=== PATIENT | female | born 1990 | race African-American/Black ===

== ENCOUNTER 2016-12-08 04:05 | Emergency (ER) | payer OTHER ==
[2016-12-08 04:31] VITALS: BP 147/99; PULSE 92; TEMP 98.6; BMI 34.4
[2016-12-08] MEDS ORDERED: KETOROLAC TROMETHAMINE 30 MG/1 ML VIAL IVPUSH ONE (04:35)
[2016-12-08] MEDS ORDERED: CLINDAMYCIN 600MG PREMIX IVPB 50 ML IVPB ONE (04:35)
--- NOTE | 2016-12-08 04:41 | PDOC ---
History of Present Illness - General Chief Complaint: Toothache Stated Complaint: SWELLING TO FACE Time Seen by Provider: 12/08/16 04:31 History Source: Patient Exam Limitations: No Limitations - History of Present Illness Initial Comments: 12/08/16 04:36 26yo Female patient with no significant past medical history presents to ED c/o toothache/infection. Patient states Friday afternoon tooth cracked. She called her Dentist who does not have an opening until Friday. Patient states she woke up with left facial swelling. Denies trouble breathing or difficulty managing secretions. LNMP: November 14. Severity: moderate Modifying Factors: worse with: cold therapy, eating, immobilization, medication , movement, rest, other Associated Symptoms: denies: denies symptoms, chest pain, cough, diaphoresis, fever/chills, headaches, loss of appetite, malaise, nausea/vomiting, rash, seizure, shortness of breath, syncope, weakness, other Aspirin Received prior to arrival: No: no aspirin today, unknown, 81 mg x 1, 81 mg x 2, 81 mg x 3, 81 mg x 4, 325 mg x 1, provided at home, provided by EMS, provided by [facility] Contraindications(Core Measure): No: Allergy, Other, Active Blding w/i 24 hrs., Plavix, Receiving Warfarin Past History - Travel Traveled outside of the country in the last 30 days: No Close contact w/someone who was outside of country & ill: No - Past Medical History Allergies/Adverse Reactions: Allergies Allergy/AdvReac Type Severity Reaction Status Date / Time No Known Allergies Allergy Verified 12/08/16 04:28 Home Medications: Ambulatory Orders Clindamycin [Cleocin -] 300 mg PO TID #30 capsule 12/08/16 Ibuprofen 800 mg PO Q8H PRN #20 tablet 12/08/16 Psychiatric Problems: Yes (panic attacks) - Psycho/Social/Smoking Cessation Hx Anxiety: No Suicidal Ideation: No Smoking History: Never smoked Have you smoked in the past 12 months: No Information on smoking cessation initiated: No Hx Alcohol Use: No Drug/Substance Use Hx: No Substance Use Type: None Review of Systems - Review of Systems Able to Perform ROS?: Yes Is the patient limited [place]ian proficient: No Constitutional: No: Chills, Fever HEENTM: Yes: Mouth Pain, Dental Problems, Mouth Swelling. No: Difficulty Swallowing Respiratory: No: Shortness of Breath, Stridor All Other Systems: Reviewed and Negative *Physical Exam - Vital Signs Last Vital Signs Temp Pulse Resp BP Pulse Ox 98.6 F 92 H 16 147/99 98 12/08/16 04:29 12/08/16 04:29 12/08/16 04:29 12/08/16 04:29 12/08/16 04:29 - Physical Exam General Appearance: Yes: Nourished, Appropriately Dressed. No: Apparent Distress, Mild Distress, Moderate Distress, Severe Distress HEENT: positive: EOMI, SARTHAK, Normal ENT Inspection, Normal Voice, Symmetrical, TMs Normal, Pharynx Normal, Other (Left facial swelling w/o abscess formation.) . negative: Pharyngeal Erythema, Tonsillar Exudate, Tonsillar Erythema, TM Bulging, TM Dull, TM Erythema Neck: positive: Trachea midline, Normal Thyroid, Supple. negative: Lymphadenopathy (R), Lymphadenopathy (L) Respiratory/Chest: positive: Lungs Clear, Normal Breath Sounds. negative: Chest Tender, Respiratory Distress, Accessory Muscle Use, Labored Respiration, Rapid RR Cardiovascular: positive: Regular Rhythm, Regular Rate Gastrointestinal/Abdominal: positive: Normal Bowel Sounds, Soft. negative: Distended, Guarding, Rebound, Tenderness Musculoskeletal: positive: Normal Inspection. negative: CVA Tenderness Extremity: positive: Normal Capillary Refill, Normal Inspection, Normal Range of Motion. negative: Pedal Edema, Swelling, Calf Tenderness, Erythema, Inflammation Integumentary: positive: Normal Color, Dry, Warm Neurologic: positive: leather skinner II-XII NML intact, Fully Oriented, Alert, Normal Mood/ Affect, Normal Response, Motor Strength 09/27 ED Treatment Course - LABORATORY CBC & Chemistry Diagram: 12/08/16 04:50 12/08/16 04:50 *DC/Admit/Observation/Transfer Diagnosis at time of Disposition: Dental caries - Discharge Dispostion Disposition: HOME Condition at time of disposition: Stable Admit: No - Prescriptions Prescriptions: Clindamycin [Cleocin -] 300 mg PO TID #30 capsule Ibuprofen 800 mg PO Q8H PRN #20 tablet PRN Reason: Pain - Patient Instructions Printed Discharge Instructions: DI for Tooth Decay, DI for Dental Pain Additional Instructions: FOLLOW UP WITH YOUR DENTIST SCHEDULED. TAKE MEDICATIONS PRESCRIBED. APPLY COLD COMPRESS TO AFFECTED AREA NEEDED FOR SWELLING. TYLENOL OR MOTRIN FOR PAIN NEEDED. RETURN IF SYMPTOMS WORSEN OR ANY CONCERNS FOR FURTHER EVALUATION. Print Language: CITIZEN OF [place] AND [place] - Post Discharge Activity Work/School Note: Back to Work
[2016-12-08] MEDS ORDERED: CLINDAMYCIN PHOSPHATE 600 MG/4 ML VIAL ONE (04:52)
[2016-12-08] MEDS ORDERED: KETOROLAC TROMETHAMINE 60 MG/2 ML VIAL ONE (04:52)
[2016-12-08 05:23] LABS: BASOPHIL 0.4 % (0-2.0); EOSINOPHIL 0.9 % (0-4.5); MCH 26.3 pg (25.7-33.7); MCHC 32.9 g/dl (32.0-36.0); MEAN CELL VOLUME 79.8 fl (80-96); NEUTROPHILS 73.7 % (42.8-82.8); RDW 14.7 % (11.6-15.6)
[2016-12-08 05:44] LABS: ANION GAP 6 (8-16); CALCIUM 8.8 mg/dL (8.5-10.1); CO2 29 mmol/L (21-32); CREATININE 0.7 mg/dL (0.55-1.02); GLUCOSE,RANDOM 102 mg/dL (74-106)
[2016-12-08 05:49] LABS: PLATELET COMMENT2 NO CLUMPING NOTED; PLATELET COUNT 286 K/MM3 (134-434); PLATELET ESTIMATE ADEQUATE (NORMAL)
--- NOTE | 2016-12-08 05:57 | PDOC ---
*Physical Exam - Vital Signs Last Vital Signs Temp Pulse Resp BP Pulse Ox 98.6 F 92 H 16 147/99 98 12/08/16 04:29 12/08/16 04:29 12/08/16 04:29 12/08/16 04:29 12/08/16 04:29 ED Treatment Course - LABORATORY CBC & Chemistry Diagram: 12/08/16 04:50 12/08/16 04:50 - ADDITIONAL ORDERS Additional order review: Laboratory Results 12/08/16 04:50 Sodium 138 Potassium 4.2 Chloride 103 Carbon Dioxide 29 Anion Gap 6 L BUN 11 Creatinine 0.7 Random Glucose 102 Calcium 8.8 12/08/16 04:50 RBC 4.55 MCV 79.8 L MCHC 32.9 RDW 14.7 MPV 8.0 Neutrophils % 73.7 Lymphocytes % 14.1 Monocytes % 10.9 H Eosinophils % 0.9 Basophils % 0.4 - Medications Given in the ED: ED Medications Discontinued Medications Generic Name Dose Route Start Last Admin Trade Name Freq PRN Reason Stop Dose Admin Clindamycin Phosphate 50 mls @ 100 mls/hr 12/08/16 04:35 12/08/16 05:08 Cleocin 600 Mg Premix Ivpb - IVPB 12/08/16 05:04 100 mls/hr ONCE ONE Administration Ketorolac Tromethamine 30 mg 12/08/16 04:35 12/08/16 05:08 Toradol Injection - IVPUSH 12/08/16 04:36 30 mg ONCE ONE Administration Medical Decision Making - Medical Decision Making 12/08/16 05:57 26 yo F presenting to the ER with a complaint of tooth ache She had a cracked tooth She was unable to follow up with dentist Presents to the ER with facial swelling No fever 12/08/16 05:58 Pt seen by Midlevel Provider under my direct supervision Ancillary studies reviewed I agree with plan as outlined by Midlevel Provider
== END 2016-12-08 06:33 | disposition home or self-care (01) ==
LOC: JER 04:05
PROC: 3E03329 Introduction of Other Anti-infective into Peripheral Vein, Percutaneous Approach (ICD-10-PCS; principal; 2016-12-08)
PROC: 3E0333Z Introduction of Anti-inflammatory into Peripheral Vein, Percutaneous Approach (ICD-10-PCS; 2016-12-08)
DX: K02.9 Dental caries, unspecified (principal)
CPT/HCPCS: 36415; 80048; 85025; 87040; 96365; 96375; 99282-25